=== PATIENT | female | born 1970 | race Caucasian/White ===

== ENCOUNTER 2020-06-18 23:12 | Inpatient (IN) | payer MEDICAID, SELFPAY ==
[~2020-06-18] VITALS: Ht 160 cm; Wt 78.9 kg
[2020-06-18 23:18] VITALS: BP 147/79
--- NOTE | 2020-06-18 23:20 | NUR ---
50 Y/O FEMALE PRESENTED TO ED C/O LOWER ABDOMINAL RASH/ABCESS S/P CHANGING CAT LITTER. PT REPORTS INCREASE IN SIZE FROM QUARTER-SIZED TO ORANGE-SIZED X 2 DAY AGO. REPORTED DRAINAGE. OBSERVED REDNESS ON LOWER ABD , NO DRAINAGE NOTED AT THIS TIME. PT C/O MILD PAIN UPON PALPATION. PT DENIES N/V/D/FEVER/CHILLS. A/O X 4 . RR EVEN AND UNLABORED. PT RESTING IN BED, LOCKED AND IN LOWEST POSITION, HOB ELEVATED, SIDE RAIL X2 FOR PT SAFETY. VSS. ERMD MADE AWARE OF PT STATUS. PMHX--ANIXETY, DM, CELLULITIS NKDA
--- NOTE | 2020-06-18 23:22 | NUR ---
ERMD AT BEDSIDE FOR MEDICAL EVALUATION.
--- NOTE | 2020-06-18 23:30 | NUR ---
PT PLACED IN GOWN AND CONNECTED TO LINING BASTER, BED LOCKED AND IN LOWEST POSITION, HOB ELEVATED , SIDE RAIL X1. NO ACUTE DISTRESS NOTED AT THIS TIME.
--- NOTE | 2020-06-18 23:35 | NUR ---
BLOOD CULUTRES AND BLOOD LABS COLLECTED AND HANDED TO LAB.
[2020-06-18] MEDS ORDERED: NACL 0.9% 2,500 ML IV ONE (23:40)
[2020-06-19 00:04] LABS: BASOPHILS # (AUTO) 0.1 K/uL (0.00-0.22); BASOPHILS % (AUTO) 0.9 % (0.0-2.0); EOSINOPHILS # (AUTO) 0.1 K/uL (0-0.4); EOSINOPHILS % (AUTO) 1.4 % (0.0-4.0); HEMATOCRIT 44.3 % (36-48); HEMOGLOBIN 15.1 g/dL (12.0-16.0); LYMPHOCYTES # (AUTO) 1.8 K/uL (2.5-16.5); LYMPHOCYTES % (AUTO) 25.8 % (20.5-51.1); MEAN CORPUSCULAR HEMOGLOBIN 31 pg (27-31); MEAN CORPUSCULAR HGB CONC 34 g/dL (33-37); MEAN CORPUSCULAR VOLUME 91.3 fL (80-94); MONOCYTES # (AUTO) 0.3 K/uL (0.8-1.0); MONOCYTES % (AUTO) 4.5 % (1.7-9.3); NEUTROPHILS # (AUTO) 4.6 K/uL (1.8-7.7); NEUTROPHILS % (AUTO) 67.4 % (42.2-75.2); PLATELET COUNT (AUTO) 184 K/uL (140-450); RED BLOOD CELL COUNT(AUTO) 4.85 MIL/uL (4.20-5.40); RED CELL DISTRIBUTION WIDTH 12.7 % (11.6-13.7); WHITE BLOOD COUNT (AUTO) 6.9 K/uL (4.8-10.8)
[2020-06-19 00:21] LABS: ALBUMIN 4.5 g/dL (3.4-5.0); ANION GAP 14.8 (8-16); CARBON DIOXIDE 26.7 mmol/L (21-32); CREATININE 0.9 mg/dL (0.6-1.3); POTASSIUM 3.5 mmol/L (3.5-5.1); TOTAL BILIRUBIN 0.5 mg/dL (0.0-1.0)
--- NOTE | 2020-06-19 00:30 | NUR ---
PT RESTING IN BED, LOCKED AND IN LOWEST POSITION ,HOB ELEVATED, SIDE RAIL X1. VISIBLE RISE AND FALL OF CHEST, RR EVEN AND UNLABORED. VSS. NO ACUTE DISTRESS NOTED AT THIS TIME.
[2020-06-19] MEDS ORDERED: LIDOCAINE/PRILOCAINE 2.5% 5 GM TUBE TP ONE (00:40)
[2020-06-19] MEDS ORDERED: INSULIN REGULAR, HUMAN 100 UNIT/ML VIAL IVP ONE (00:40)
[2020-06-19] MEDS ORDERED: KETOROLAC 30 MG/ML VIAL IVP ONE (00:40)
[2020-06-19] MEDS ORDERED: VANCOMYCIN 1,000 MG in DEXTROSE 5% 250 ML IV ONE (00:40)
[2020-06-19] MEDS ORDERED: PIPERACILLIN/TAZOBACTAM 3.375 GM in DEXTROSE 5% 50 ML IV ONE (00:40)
--- NOTE | 2020-06-19 00:45 | NUR ---
PT AMBULATED TO RESTROOM W/ STEADY GAIT TO PROVIDE URINE SAMPLE.
[2020-06-19] MEDS ORDERED: PIPERACILLIN/TAZOBACTAM 3.375 GM VIAL IV ONE ×2 (00:46→12:03)
--- NOTE | 2020-06-19 01:07 | NUR ---
LAB CALLED FOR P/U OF URINE SAMPLE AT THIS TIME.
[2020-06-19 01:29] LABS: APPEARANCE,URINE CLEAR (CLEAR); BILIRUBIN,URINE NEGATIVE (NEGATIVE); BLOOD, URINE NEGATIVE (NEGATIVE); COLOR,URINE YELLOW (YELLOW); LEUKOCYTE ESTERASE ,URINE NEGATIVE (NEGATIVE); NITRITE, URINE NEGATIVE (NEGATIVE); PH,URINE 5.5 (5.0-9.0); UGLUCOSE 3+ (NEGATIVE)
[2020-06-19] MEDS ORDERED: VANCOMYCIN 1,000 MG VIAL ONE (01:31)
--- NOTE | 2020-06-19 01:45 | NUR ---
PT STATES SHE IS FEELING GOOD, NO PAIN NOTED AT THIS TIME. PT RESTING IN BED, LOCKED AND IN LOWEST POSITION, HOB ELEVATED, SIDE RAIL X1. RR EVEN AND UNLABORED. NO ACUTE DISTRESS NOTED AT THIS TIME. VSS.
--- NOTE | 2020-06-19 02:08 | NUR ---
lactic acid of 2.[address] Tilley.
--- NOTE | 2020-06-19 02:15 | NUR ---
MIR BURGOS AT BEDSIDE RE-EVALUATIONS
--- NOTE | 2020-06-19 02:50 | NUR ---
BRIDGETT ISABEL SWAB COLLECTED AND WALKED TO LAB.
--- NOTE | 2020-06-19 03:25 | NUR ---
PT RESTING IN BED, LOCKED AND IN LOWEST POSITION ,HOB ELEVATED, SIDE RAIL X2 FOR PT SAFETY. VISIBLE RISE AND FALL OF CHEST. PT STATES SHE IS FEELING GOOD AT THIS TIME AND DOES NOT NEED ANYTHING. VSS. NO ACUTE DISTRESS NOTED AT THIS TIME.
--- NOTE | 2020-06-19 03:50 | NUR ---
PT PROVIDED WATER FOR COMFORT. NO DISTRESS NOTED AT THIS TIME.
--- NOTE | 2020-06-19 05:21 | NUR ---
PT AMBULATED TO RESTROOM W/ STEADY GAIT.
--- NOTE | 2020-06-19 05:24 | NUR ---
PT C/O 01/11 HEAD PAIN AT THIS TIME. ADMITTING DR. YORK CONTACTED , WAITING FOR ORDERS AT THIS TIME.
[2020-06-19] MEDS ORDERED: MORPHINE SULFATE 4 MG/ML SYR IVP ONE (05:45)
--- NOTE | 2020-06-19 05:45 | NUR ---
UNABLE TO GET A HOLD OF ADMIT DR. YORK AT THIS TIME. ERMD MADE AWARE OF PT PAIN C/O - ERMD WILL PLACE PAIN MEDICATION ORDER AT THIS TIME.
--- NOTE | 2020-06-19 05:56 | NUR ---
PER PT AUTHORIZATION , OK TO GIVE INFORMATION REGARDING PT STATUS TO SISTER PALOMA KHOURY.
--- NOTE | 2020-06-19 06:35 | NUR ---
PT SLEEPING IN BED, LOCKED AND IN LOWEST POSITION, HOB ELEVATED, SIDE RAIL X2 FOR PT SAFETY. VISIBLE RISE AND FALL OF CHEST , AROUSABLE TO VERBAL STIMULATION. SAO2 97%. VSS. NO ACUTE DISTRESS NOTED AT THIS TIME.
[2020-06-19] MEDS ORDERED: DOCUSATE SODIUM 100 MG GELCAP PO PRN (07:00)
[2020-06-19] MEDS ORDERED: guaiFENesin DM 200/20 MG-10 ML 10 ML UDC PO PRN (07:00)
[2020-06-19] MEDS ORDERED: POTASSIUM CHLORIDE 10 MEQ TABER PO PRN (07:00)
[2020-06-19] MEDS ORDERED: ACETAMINOPHEN 325 MG TAB PO PRN (07:00)
[2020-06-19] MEDS ORDERED: ONDANSETRON 4 MG/2 ML VIAL IM/IVP PRN (07:00)
--- NOTE | 2020-06-19 07:15 | NUR ---
REPORT GIVEN TO NOAH CUNNINGHAM FOR TRANSFER OF CARE.
--- NOTE | 2020-06-19 07:16 | NUR ---
REPORT RECEIVED FROM NOAH CUELLAR.
[2020-06-19] MEDS: NACL 0.9% 1,000 ML IV SCH ×2 (07:56→17:00)
--- NOTE | 2020-06-19 07:57 | NUR ---
PT FBS 305. DR. YORK MADE AWARE.
[2020-06-19] MEDS ORDERED: DEXTROSE 50% 50 ML SYR IVP PRN (08:05)
--- NOTE | 2020-06-19 08:07 | NUR ---
pt sitting up and eating breakfast in bed.
[2020-06-19] MEDS: INSULIN LISPRO SLIDING SCALE 100 UNITS/ML VIAL SUBQ PRN ×3 (08:15→17:04)
[2020-06-19] MEDS: metFORMIN 500 MG TAB PO SCH ×2 (08:16→17:06)
--- NOTE | 2020-06-19 08:33 | NUR ---
Dr. Tilley is evaluating the patient at bedside.
[2020-06-19 08:36] LABS: PROTHROMBIN TIME 9.8 secs (10.8-13.4)
--- NOTE | 2020-06-19 08:37 | NUR ---
PATIENT HAS BEEN SCREENED AND CATEGORIZED MODERATE NUTRITION RISK. PATIENT WILL BE SEEN WITHIN 3-5 DAYS OF ADMISSION. 06/21/20 06/23/[address]
[2020-06-19 08:50] LABS: CHOL/HDL RATIO 3.3 (1-4.5); FREE T4 (FREE THYROXINE) 1.09 ng/dL (0.76-1.46); MAGNESIUM 1.8 mg/dL (1.8-2.4); PHOSPHORUS 4.2 mg/dL (2.5-4.9); THYROID STIMULATING HORMONE 1.8 uIU/mL (0.34-3.74)
[2020-06-19] MEDS: PANTOPRAZOLE 40 MG TABEC PO SCH (09:23)
[2020-06-19 09:27] LABS: BARBITURATE, URINE NEGATIVE ng/ml (NEG <=200); BENZODIAZEPINE, URINE NEGATIVE ng/mL (NEG <=200); CANNABINOID, URINE NEGATIVE ng/mL (NEG <=50); COCAINE, URINE NEGATIVE ng/mL (NEG <=300); OPIATE, URINE NEGATIVE ng/mL (NEG <=2000); PHENCYCLIDINE SCREEN,URINE NEGATIVE ng/mL (NEG <=25)
[2020-06-19] MEDS: BLOOD GLUCOSE MONITORING 1 DEV DEV FS SCH ×3 (11:32→21:12)
[2020-06-19] MEDS: PIPERACILLIN/TAZOBACTAM 3.375 GM in DEXTROSE 5% 50 ML IV SCH ×2 (12:13→18:27)
--- NOTE | 2020-06-19 12:46 | NUR ---
SOCIAL WORK NOTE: SW ATTEMPTED TO CONTACT PATIENT'S CRISTIANO MAHARAJ [phone] TO COMPLETE ASSESSMENT. SW LEFT VM AND WILL FOLLOW UP. Addendum: 06/20/20 at 1316 by Harrison Noriega SS Patient's Orientation Unable To Assess Information Provided By CRISTIANO MAHARAJ - Comments SW WAS UNABLE TO MEET PATIENT AT BEDSIDE DUE TO MEDICAL CONDITION. SW COMPLETED ASSESSMENT WITH PATIENT'S CRISTIANO AND VERIFIED DEMOGRAPHICS. Storage Battery Charger, Realtionship and Phone Number CRISTIANO BLOOD [phone] Healthcare Power of Cloth Finishing Range Tender No Does Patient Have a POLST No Identifying Problems No Social Work Triggers Is A Social Work Consult Needed No Mandate Report Filed No Explanation Of Identifying Problems PATIENT IS A 50-YEAR-OLD FEMALE ADMITTED FOR UNCONTROLLED DIABETES. PATIENT HAS PMHX OF DIABETES AND CELLULITIS. PATIENT'S REPORTED NO HISTORY OF SUBSTANCE ABUSE OR MENTAL HEALTH. Admitted From Home Prior Resources/Services Used In Last 12 Months No Prior Resources Used Prior DME No Prior DME Used Dialysis Comments N/A Living Situation Lives With Family House Patient Had Caregiver No Home Support No Caregiver Issues Financial Issues No Known Financial Issue Referral To The Financial Counselor Needed No Factors/Needs No D/C Needs Identified Explanation And Or Other Factors Affecting/Possible DC Needs PATIENT'S STATED HE WOULD TRANSPORT PATIENT HOME AT DISCHARGE. Pt/Rep Participated In Discharge Plan Yes Patient/Family Agress With Discharge Plan Yes Discharge Plan Comments TENTATIVE PLAN IS FOR PATIENT TO BE DISCHARGED HOME. DC Plan Status Initiated
[2020-06-19] MEDS ORDERED: metFORMIN 500 MG TAB PO SCH (17:00)
--- NOTE | 2020-06-19 19:28 | NUR ---
Pt report given to MANDEEP. Transfer of care at this time.
--- NOTE | 2020-06-19 19:30 | NUR ---
RECEIVED REPORT FROM OCTAVIO AZMORA FOR CONTINUITY OF CARE. PT LAYING IN BED, IN NO ACUTE DISTRESS NOTED. PT PLACED ON WAITER/WAITRESS ECONOMY CLASS AT THIS TIME. MS HOLD AT THIS TIME.
[2020-06-19 20:15] VITALS: BP 137/76
--- NOTE | 2020-06-19 20:15 | NUR ---
PICTURES OF WOUND TAKEN. PRIMARY NURSE AT BEDSIDE.
--- NOTE | 2020-06-19 20:20 | NUR ---
Gave report to Nancy ZAMORA for continuity of care.
--- NOTE | 2020-06-19 20:39 | NUR ---
Patient will be admitted to care of Admited to [facility]. Will go to room 126. Belongings list completed. Report to ANASTASIA ZAMORA.
--- NOTE | 2020-06-19 20:45 | NUR ---
RECEIVED PATIENT FROM ER VIA WHEELCHAIR IN STABLE CONDITION FOR CONTINUITY OF CARE. AAOX4. RESPIRATIONS EVEN, UNLABORED. PATIENT VERBALIZED PAIN, WILL MEDICATE ORDERED. NO S/S ACUTE DISTRESS. SKIN ASSESSMENT COMPLETE. CLOSED WOUND TO LOWER MEDIAL ABDOMEN NOTED, OPEN TO AIR. SALINE LOCK TO LEFT AC 20G PATENT/INTACT. IV SITE TO RIGHT AC 20G PATENT/INTACT, INFUSING FLUIDS WELL. ABDOMEN SOFT, NONTENDER, NONDISTENDED. BOWEL SOUNDS ACTIVE X4 QUADRANTS. PATIENT IS CONTINENT OF B/B. ORIENTED TO ROOM/STAFF AND CALL LIGHT. MRSA SCREEN COMPLETED. CALL LIGHT WITHIN REACH AT ALL TIMES.
--- NOTE | 2020-06-19 21:45 | NUR ---
PATIENT RESTING COMFORTABLY IN BED. NO S/S ACUTE DISTRESS. CALL LIGHT WITHIN REACH.
[2020-06-19] MEDS: HYDROcodone/APAP 7.5/325 MG 1 TAB PO PRN (22:07)
--- NOTE | 2020-06-19 23:30 | NUR ---
PATIENT ASLEEP. NO S/S ACUTE DISTRESS. CALL LIGHT WITHIN REACH.
[2020-06-20] VITALS: BP 126/78
[2020-06-20] MEDS ORDERED: PIPERACILLIN/TAZOBACTAM 3.375 GM VIAL IV ONE ×2 (00:03→05:17)
[2020-06-20] MEDS: PIPERACILLIN/TAZOBACTAM 3.375 GM in DEXTROSE 5% 50 ML IV SCH ×4 (00:05→18:30)
--- NOTE | 2020-06-20 01:10 | NUR ---
MADE ROUNDS. PATIENT IS SLEEPING WELL. NO S/S ACUTE DISTRESS. CALL LIGHT WITHIN REACH.
[2020-06-20] MEDS: NACL 0.9% 1,000 ML IV SCH ×2 (03:00→12:33)
--- NOTE | 2020-06-20 03:22 | NUR ---
PATIENT IS ASLEEP. NO S/S ACUTE DISTRESS. CALL LIGHT WITHIN REACH.
--- NOTE | 2020-06-20 05:15 | NUR ---
PATIENT ASLEEP, EASILY AROUSABLE. NO S/S ACUTE DISTRESS. CALL LIGHT WITHIN REACH.
[2020-06-20 06:12] LABS: ANION GAP 11.9 (8-16); CARBON DIOXIDE 26.8 mmol/L (21-32); CREATININE 0.5 mg/dL (0.6-1.3); POTASSIUM 3.7 mmol/L (3.5-5.1)
[2020-06-20 06:33] LABS: BASOPHILS % (AUTO) 0.5 % (0.0-2.0); EOSINOPHILS # (AUTO) 0.1 K/uL (0-0.4); EOSINOPHILS % (AUTO) 1.9 % (0.0-4.0); HEMATOCRIT 38.6 % (36-48); HEMOGLOBIN 12.8 g/dL (12.0-16.0); LYMPHOCYTES # (AUTO) 1.5 K/uL (2.5-16.5); LYMPHOCYTES % (AUTO) 25.4 % (20.5-51.1); MEAN CORPUSCULAR HEMOGLOBIN 30 pg (27-31); MEAN CORPUSCULAR HGB CONC 33 g/dL (33-37); MEAN CORPUSCULAR VOLUME 91.2 fL (80-94); MONOCYTES # (AUTO) 0.3 K/uL (0.8-1.0); MONOCYTES % (AUTO) 5.6 % (1.7-9.3); NEUTROPHILS # (AUTO) 3.9 K/uL (1.8-7.7); NEUTROPHILS % (AUTO) 66.6 % (42.2-75.2); PLATELET COUNT (AUTO) 141 K/uL (140-450); RED BLOOD CELL COUNT(AUTO) 4.24 MIL/uL (4.20-5.40); RED CELL DISTRIBUTION WIDTH 12.4 % (11.6-13.7); WHITE BLOOD COUNT (AUTO) 5.8 K/uL (4.8-10.8)
[2020-06-20] MEDS: INSULIN LISPRO SLIDING SCALE 100 UNITS/ML VIAL SUBQ PRN ×4 (06:44→20:51)
[2020-06-20] MEDS: BLOOD GLUCOSE MONITORING 1 DEV DEV FS SCH ×4 (06:48→20:52)
--- NOTE | 2020-06-20 07:30 | NUR ---
RECEIVED PT AAOX4. NO SOB NOTED. NO C/O PAIN AT THIS TIME. IV TO RT AND LT HAND PATENT AND INTACT. CHEST CLEAR. ABDOMEN SOFT, BOWEL SOUNDS PRESENT. NO EDEMA NOTED. WITH CLOSED WOUND (CELLULITIS) ON SUPRAPUBIC AREA NOTED CLEAN AND DRY. INSTRUCTED PT TO CALL FOR ASSISTANCE, CALL LIGHT WITHIN REACH. PT VERBALIZED UNDERSTANDING.
[2020-06-20 08:00] VITALS: BP 114/67
[2020-06-20 08:10] LABS: T4 (THYROXINE) 8.1 ug/dL (4.5-12.0)
--- NOTE | 2020-06-20 08:12 | NUR ---
FNS CONSULT RECEIVED FOR WOUNDS/PRESSURE ULCERS IS NOT APPROPRIATE FOR NOTED "ABDOMINAL WALL CELLULITIS".
[2020-06-20] MEDS: metFORMIN 500 MG TAB PO SCH ×2 (08:50→18:31)
[2020-06-20] MEDS: PANTOPRAZOLE 40 MG TABEC PO SCH (08:50)
[2020-06-20] MEDS: HYDROcodone/APAP 7.5/325 MG 1 TAB PO PRN ×3 (08:51→22:51)
[2020-06-20 16:00] VITALS: BP 143/68
--- NOTE | 2020-06-20 19:20 | NUR ---
PT RESTING. NO SOB NOTED. NO C/O PAIN. WILL ENDORSE TO NEXT SHIFT NURSE FOR CONTINUITY OF CARE.
--- NOTE | 2020-06-20 19:53 | NUR ---
AWAKE ALERT AND ORIENTED.RESP.UNLABORED.LUNGS CLEAR.NO C/O PAIN OR DISCOMFORT NOW.CALL LIGHT WITHIN REACH.WILL CONT.MONITORING.
[2020-06-20 20:00] VITALS: BP 122/77
[2020-06-20] MEDS: ZOLPIDEM 5 MG TAB PO PRN (20:51)
[2020-06-21] MEDS: PIPERACILLIN/TAZOBACTAM 3.375 GM in DEXTROSE 5% 50 ML IV SCH ×4 (00:03→17:35)
[2020-06-21 04:00] VITALS: BP 117/69
[2020-06-21] MEDS: HYDROcodone/APAP 7.5/325 MG 1 TAB PO PRN ×2 (05:07→13:38)
[2020-06-21] MEDS: NACL 0.9% 1,000 ML IV SCH ×3 (05:08→19:00)
[2020-06-21] MEDS: BLOOD GLUCOSE MONITORING 1 DEV DEV FS SCH ×4 (06:00→21:00)
[2020-06-21 06:02] LABS: BASOPHILS % (AUTO) 0.9 % (0.0-2.0); EOSINOPHILS # (AUTO) 0.1 K/uL (0-0.4); EOSINOPHILS % (AUTO) 1.9 % (0.0-4.0); HEMATOCRIT 36.3 % (36-48); HEMOGLOBIN 12.5 g/dL (12.0-16.0); LYMPHOCYTES # (AUTO) 1.7 K/uL (2.5-16.5); LYMPHOCYTES % (AUTO) 35.2 % (20.5-51.1); MEAN CORPUSCULAR HEMOGLOBIN 31 pg (27-31); MEAN CORPUSCULAR HGB CONC 34 g/dL (33-37); MEAN CORPUSCULAR VOLUME 90.4 fL (80-94); MONOCYTES # (AUTO) 0.2 K/uL (0.8-1.0); MONOCYTES % (AUTO) 4.6 % (1.7-9.3); NEUTROPHILS # (AUTO) 2.8 K/uL (1.8-7.7); NEUTROPHILS % (AUTO) 57.4 % (42.2-75.2); PLATELET COUNT (AUTO) 137 K/uL (140-450); RED BLOOD CELL COUNT(AUTO) 4.01 MIL/uL (4.20-5.40); RED CELL DISTRIBUTION WIDTH 12.4 % (11.6-13.7); WHITE BLOOD COUNT (AUTO) 4.8 K/uL (4.8-10.8)
[2020-06-21] MEDS: INSULIN LISPRO SLIDING SCALE 100 UNITS/ML VIAL SUBQ PRN ×3 (06:12→17:34)
[2020-06-21 06:46] LABS: ANION GAP 9.8 (8-16); CARBON DIOXIDE 30.7 mmol/L (21-32); CREATININE 0.5 mg/dL (0.6-1.3); POTASSIUM 3.5 mmol/L (3.5-5.1)
--- NOTE | 2020-06-21 07:32 | NUR ---
REPORT GIVEN TO MIKALA ZAMORA.PT IS WORRY ABOUT HER CELLULITIS ON LOWER ABDOMEN.ENDORSED TO MIKALA ZAMORA AM SHIFT TO TALK ABOUT THAT TO .PT'S CONDITION IS STABLE.
--- NOTE | 2020-06-21 07:33 | NUR ---
RECEIVED REPORT FROM SIGN BOARD ERECTOR NURSE JULIA-NOAH. PT RESTING IN BED, AOX4, ON ROOM AIR WITH LEFT AC #20G AND RIGHT FA#20G RUNNING NS @ 100ML/HR. LOWER ABDOMINAL WALL CELLULITIS AND SUPRAPUBIC ABSCESS. DISCUSSED PLAN OF CARE AND PT VERBALIZED UNDERSTANDING. NO S/S OF RESPIRATORY DISTRESS AND DISCOMFORT NOTED AT THIS TIME. WILL CONTINUE TO MONITOR.
[2020-06-21] MEDS: metFORMIN 500 MG TAB PO SCH ×2 (09:04→17:35)
[2020-06-21] MEDS: PANTOPRAZOLE 40 MG TABEC PO SCH (09:05)
--- NOTE | 2020-06-21 09:05 | NUR ---
SCHEDULED MEDICATIONS GIVEN AND TOLERATED WELL. PT STATED SHE VOMITED IN THE TOILET. ZOFRAN ALSO GIVEN AND TOLERATED WELL. NO S/S OF RESPIRATORY DISTRESS AND DISCOMFORT NOTED AT THIS TIME. WILL CONTINUE TO MONITOR.
--- NOTE | 2020-06-21 10:30 | NUR ---
WOUND CONSULT DONE WITH CONCHITA QUIJANO FROM DR. SAMS. POC DISCUSSED WITH PT. WILL HAVE I&D TOMORROW AND HOME [facility]ALTH [facility]ARE TO FOLLOW UP FOR WOUND CARE . WILL EVALUATED WOUND AFTER SURGERY, POSSIBLE ON FRIDAY. PT. VERBALIZES UNDERSTANDING. START TX WITH PRN WOUND CARE: SUPRAPUBIC WOUND CLEANSE WITH NS, PAT DRY ,APPLY COMPOSITE DRESSING.
--- NOTE | 2020-06-21 11:30 | NUR ---
BLOOD GLUCOSE 283- WILL ADMINISTER INSULIN COVERAGE.
--- NOTE | 2020-06-21 12:17 | NUR ---
INSULIN COVERAGE GIVEN AND TOLERATED WELL. ZOSYN GIVEN AND TOLERATED WELL. NO S/S OF RESPIRATORY DISTRESS AND DISCOMFORT NOTED AT THIS TIME. WILL CONTINUE TO MONITOR.
--- NOTE | 2020-06-21 14:00 | NUR ---
PT RESTING IN BED. NO S/S OF RESPIRATORY DISTRESS AND DISCOMFORT NOTED AT THIS TIME. WILL CONTINUE TO MONITOR.
--- NOTE | 2020-06-21 14:31 | NUR ---
DC PLANN[age] YRS OLD FEMALE PATIENT WAS ADMITTED FROM HOME WITH A DX OF UNCONTROLLED DM, LOWER ABDOMINAL WALL CELLULITIS. PT HAS A HX OF DM WITH NEUROPATHY AND CELLULITIS OF THE 2ND AND 3RD FINGER OF RT HAND (2017). CXR NEGATIVE. RAPID COVID TEST NEGATIVE . URINE AND BLOOD CULTURE PENDING. STARTED ON IVF, IV ABX WITH ROCEPHIN. US DONE TO CHECK SUPRAPUBIC MASS SHOWED A SOLID MASS. CONSULTED WITH SURGEON DR SAMS FOR SUPRAPUBIC ABSCESS . I&D IS SCHEDULED FOR TOMORROW. DC PLAN TO HO HOME WITH HOME HEALTH FOR WOUND CARE. CM TO FOLLOW
--- NOTE | 2020-06-21 16:00 | NUR ---
PT RESTING IN BED. NO S/S OF RESPIRATORY DISTRESS AND DISCOMFORT NOTED AT THIS TIME. WILL CONTINUE TO MONITOR.
--- NOTE | 2020-06-21 17:35 | NUR ---
INSULIN COVERAGE GIVEN AND TOLERATED WELL. SCHEDULED MEDICATION GLUCOPHAGE AND ZOSYN GIVEN AND TOLERATED WELL. NO S/S OF RESPIRATORY DISTRESS OR DISCOMFORT NOTED AT THIS TIME. WILL CONTINUE TO MONITOR.
[2020-06-22] MEDS: NACL 0.9% 1,000 ML IV SCH ×2 (05:00→16:24)
[2020-06-22] MEDS: PIPERACILLIN/TAZOBACTAM 3.375 GM in DEXTROSE 5% 50 ML IV SCH ×6 (06:00→23:36)
[2020-06-22] MEDS: BLOOD GLUCOSE MONITORING 1 DEV DEV FS SCH ×4 (07:30→21:11)
--- NOTE | 2020-06-22 07:30 | NUR ---
RECEIVED PATIENT FROM NIGHT NURSE. PATIENT IN BED AWAKE AND ALERT. RESP EVEN AND UNLABORED ON ROOM AIR. DENIED OF PAIN AT THIS TIME. SLEPT THROUGH THE NIGHT. LAC 20G RFA 20G NOTED. PATIENT PENDING PROCEDURE WITH DR SAMS FOR I/D SUPRAPUBIC ABSCESS AT 1300. PLAN OF CARE DISCUSSED WITH PATIENT. PATIENT VERBALIZED UNDERSTANDING. CALL LIGHT WITHIN REACH. WILL CONTINUE TO MONITOR.
[2020-06-22 08:00] VITALS: BP 121/72
[2020-06-22] MEDS: metFORMIN 500 MG TAB PO SCH ×2 (09:21→16:24)
[2020-06-22] MEDS: PANTOPRAZOLE 40 MG TABEC PO SCH (09:22)
--- NOTE | 2020-06-22 09:23 | NUR ---
MORNING ROUTINE MEDICATIONS GIVEN. PATIENT IN BED AWAKE AND ALERT ORIENTED X4. RESP EVEN AND UNLABORED ON ROOM AIR. DENIED OF PAIN AT THIS TIME. SKIN WARM TO TOUCH AND INTACT. PATIENT ABLE TO AMBULATE TO THE BATHROOM SAFELY WITHOUT ANY ASSIST. RFA 20G INFUSING D5 NS 60ML/HR, LAC 20G INTACT AND PATENT, SL. BANDAGE COVERED SMALL AREA OVER SUPRAPUBIC AREA, WITH SMALL PINK DRAINAGE NOTED, NO ACTIVE BLEEDING AT THIS TIME, MASS FELT UPON PALPATION, NON TENDER AND PT DENIED PAIN. PATIENT ABLE TO MAKE NEEDS KNOWN. CALL LIGHT WITHIN REACH. WILL CONTINUE TO MONITOR.
[2020-06-22 10:36] LABS: ANION GAP 12.9 (8-16); CREATININE 0.5 mg/dL (0.6-1.3); POTASSIUM 3.9 mmol/L (3.5-5.1)
[2020-06-22 10:40] LABS: MAGNESIUM 1.6 mg/dL (1.8-2.4); PHOSPHORUS 4.4 mg/dL (2.5-4.9)
[2020-06-22 11:19] LABS: WHITE BLOOD COUNT (AUTO) 4.6 K/uL (4.8-10.8)
[2020-06-22 11:20] LABS: BASOPHILS % (AUTO) 0.4 % (0.0-2.0); EOSINOPHILS # (AUTO) 0.1 K/uL (0-0.4); EOSINOPHILS % (AUTO) 1.4 % (0.0-4.0); HEMOGLOBIN 13.1 g/dL (12.0-16.0); LYMPHOCYTES # (AUTO) 1.2 K/uL (2.5-16.5); LYMPHOCYTES % (AUTO) 26.3 % (20.5-51.1); MEAN CORPUSCULAR HEMOGLOBIN 31 pg (27-31); MEAN CORPUSCULAR HGB CONC 34 g/dL (33-37); MONOCYTES # (AUTO) 0.3 K/uL (0.8-1.0); MONOCYTES % (AUTO) 5.9 % (1.7-9.3); PLATELET COUNT (AUTO) 151 K/uL (140-450); RED BLOOD CELL COUNT(AUTO) 4.26 MIL/uL (4.20-5.40); RED CELL DISTRIBUTION WIDTH 12.3 % (11.6-13.7)
[2020-06-22] MEDS ORDERED: MAG SULF 2000 MG/WATER PREMIX 50 ML IV SCH (11:50)
[2020-06-22] MEDS: INSULIN LISPRO SLIDING SCALE 100 UNITS/ML VIAL SUBQ PRN ×3 (12:28→21:10)
--- NOTE | 2020-06-22 12:35 | NUR ---
BLOOD GLUCOSE 230. INSULIN PROVIDED PER SLIDING SCALE. PATIENT IN BED TALKING ON HER CELL PHONE. DENIED OF PAIN AT THIS TIME. RESP EVEN AND UNLABORED ON ROOM AIR. ABLE TO AMBULATING WITH STEADY GAIT TO THE BATHROOM. CALL LIGHT WITHIN REACH. WILL CONTINUE WITH NPO. WILL CONTINUE TO MONITOR.
[2020-06-22] MEDS ORDERED: KETOROLAC 30 MG/ML VIAL ONE (14:05)
[2020-06-22] MEDS ORDERED: MEPERIDINE 25 MG/ML SYR IVP PRN (14:05)
[2020-06-22] MEDS ORDERED: HYDROmorphone 1 MG/ML AMP IVP PRN (14:05)
[2020-06-22] MEDS ORDERED: BLOOD GLUCOSE MONITORING 1 DEV DEV FS ONE (14:05)
[2020-06-22] MEDS ORDERED: fentaNYL citrate 0.05 MG/ML VIAL ONE (14:05)
[2020-06-22] MEDS ORDERED: SEVOFLURANE 250 ML BTL INH ONE (14:05)
[2020-06-22] MEDS ORDERED: MEPERIDINE 25 MG/ML SYR ONE (14:05)
[2020-06-22] MEDS ORDERED: DEXAMETHASONE 4 MG/ML VIAL ONE (14:05)
[2020-06-22] MEDS ORDERED: MIDAZOLAM 2 MG/2 ML VIAL ONE (14:05)
[2020-06-22] MEDS ORDERED: ONDANSETRON 4 MG/2 ML VIAL IVP PRN (14:05)
[2020-06-22] MEDS ORDERED: PROPOFOL 200 MG/20 ML VIAL IV ONE (14:05)
[2020-06-22] MEDS ORDERED: NACL 0.9% 1,000 ML IV SCH (14:05)
[2020-06-22] MEDS ORDERED: ONDANSETRON 4 MG/2 ML VIAL ONE (14:05)
[2020-06-22] MEDS ORDERED: diphenhydrAMINE 50 MG/ML VIAL IVP PRN (14:05)
--- NOTE | 2020-06-22 14:07 | NUR ---
PT TO OR FOR PROCEDURE. PATIENT LEFT IN STABLE CONDITION.
[2020-06-22] MEDS: BUPIVACAINE-MPF 0.25% 30 ML VIAL INJ ONE ×2 (14:43→14:54)
[2020-06-22] MEDS: LIDOCAINE 1% 500 MG/50 ML VIAL ONE ×2 (14:54→15:36)
--- NOTE | 2020-06-22 15:02 | NUR ---
06/22/20 RD INITIAL ASSESSMENT COMPLETED PLEASE REFER TO NUTRITION ASSESSMENT UNDER CARE ACTIVITY FOR ESTIMATED NUTRITIONAL NEEDS. 1. CONTINUE [facility] DIET TOLERATED 2. RD PROVIDED NUTRITION EDUCATION ON CONSISTENT CARBOHYDRATE INTAKE 3. RD TO FOLLOW-UP 3-5 DAYS, MODERATE RISK KAROLINE YUNG, RD
--- NOTE | 2020-06-22 15:35 | NUR ---
PATIENT CAME BACK FROM OR S/P INCISION AND DRAINAGE OF SUPRAPUBIC ABSCESS. PATIENT CAME BACK IN STABLE CONDITION. SLIGHT DROWSY BUT ALERT. DENIED OF PAIN AT THIS TIME. RESP EVEN AND UNLABORED ON ROOM AIR. ABLE TO MAKE NEEDS KNOWN. CCHO DIET TOLERATED. CALL LIGHT WITHIN REACH. WILL CONTINUE TO MONITOR.
[2020-06-22] MEDS: HYDROcodone/APAP 7.5/325 MG 1 TAB PO PRN ×2 (16:25→21:05)
--- NOTE | 2020-06-22 17:54 | NUR ---
BLOOD GLUCOSE 217. INSULIN GIVEN PER SLIDING SCALE. PATIENT AWAKE AND ALERT. IV ACCESS INSERTED TO LEFT UPPER FOREARM 22G USING ASEPTIC TECHNIQUE. REMOVED PRIOR IV ACCESS D/T INFILTRATION. PATIENT TOLERATED WELL. DENIED OF PAIN AT THIS TIME. CALL LIGHT WITHIN REACH. WILL CONTINUE TO MONITOR.
--- NOTE | 2020-06-22 19:25 | NUR ---
RECEIVED BEDSIDE REPORT FROM DAY SHIFT NURSE. PATIENT IS AWAKE, ALERT, AND COOPERATIVE. RESPIRATION EVEN UNLABORED ON ROOM AIR. NO DISTRESS NOTED. SKIN IS WARM AND DRY. IV PATENT AND INTACT. PATIENT IS S/P I&D SUPRAPUBIC ABSCESS PUSTULE. DRESSING IS INTACT AND DRY. PLAN OF CARE WAS DISCUSSED. ALL SAFETY MEASURES IN PLACE. BED IS AT LOW POSITION. CALL LIGHT WITHIN REACH. WILL CONTINUE TO MONITOR
--- NOTE | 2020-06-22 19:25 | NUR ---
ENDORSED PATIENT TO NIGHT NURSE. PATIENT IN STABLE CONDITION.
[2020-06-22 20:00] VITALS: BP 119/70
--- NOTE | 2020-06-22 21:05 | NUR ---
CHECKED BLOOD SUGAR. PATIENT BLOOD SUGAR 306. ADMINISTERED INSULIN PER SLIDING SCALE ORDER. PATIENT COMPLAINED OF 3/10 ABDOMINAL PAIN. PRN PAIN MED ADMINISTERED PER ORDER. WILL CONTINUE TO MONITOR.
--- NOTE | 2020-06-22 23:35 | NUR ---
PATIENT COMPLAINED CANT FALL ASLEEP AND ASKING FOR SLEEPING AID. PRN AMBIEN GIVEN PER ORDER. WILL CONTINUE TO MONITOR.
[2020-06-22] MEDS: ZOLPIDEM 5 MG TAB PO PRN (23:36)
[2020-06-23] MEDS: NACL 0.9% 1,000 ML IV SCH ×2 (01:00→05:27)
--- NOTE | 2020-06-23 01:21 | NUR ---
CHECKED PATIENT. PATIENT SLEEPING RESPIRATION EVEN UNLABORED ON ROOM AIR. NO DISTRESS NOTED. WILL CONTINUE TO MONITOR.
--- NOTE | 2020-06-23 02:38 | NUR ---
CHECKED PATIENT, PATIENT SLEEPING RESPIRATION EVEN UNLABORED ON ROOM AIR. NO DISTRESS NOTED. WILL CONTINUE TO MONITOR
[2020-06-23 04:00] VITALS: BP 117/60
[2020-06-23] MEDS: PIPERACILLIN/TAZOBACTAM 3.375 GM in DEXTROSE 5% 50 ML IV SCH ×3 (05:25→18:18)
--- NOTE | 2020-06-23 05:30 | NUR ---
IV ANTIBIOTIC ADMINISTERED PER ORDER. WILL CONTINUE TO MONITOR
[2020-06-23 05:43] LABS: BASOPHILS % (AUTO) 0.1 % (0.0-2.0); EOSINOPHILS % (AUTO) 0.1 % (0.0-4.0); HEMATOCRIT 35.4 % (36-48); HEMOGLOBIN 12.1 g/dL (12.0-16.0); LYMPHOCYTES # (AUTO) 1.3 K/uL (2.5-16.5); LYMPHOCYTES % (AUTO) 21.7 % (20.5-51.1); MEAN CORPUSCULAR HEMOGLOBIN 31 pg (27-31); MEAN CORPUSCULAR HGB CONC 34 g/dL (33-37); MEAN CORPUSCULAR VOLUME 90.6 fL (80-94); MONOCYTES # (AUTO) 0.2 K/uL (0.8-1.0); MONOCYTES % (AUTO) 3.7 % (1.7-9.3); NEUTROPHILS # (AUTO) 4.4 K/uL (1.8-7.7); NEUTROPHILS % (AUTO) 74.4 % (42.2-75.2); PLATELET COUNT (AUTO) 160 K/uL (140-450); RED BLOOD CELL COUNT(AUTO) 3.91 MIL/uL (4.20-5.40); RED CELL DISTRIBUTION WIDTH 12.3 % (11.6-13.7); WHITE BLOOD COUNT (AUTO) 5.9 K/uL (4.8-10.8)
[2020-06-23 06:20] LABS: ANION GAP 11.9 (8-16); CARBON DIOXIDE 27.6 mmol/L (21-32); CREATININE 0.5 mg/dL (0.6-1.3); POTASSIUM 3.5 mmol/L (3.5-5.1)
[2020-06-23 06:25] LABS: PHOSPHORUS 4.1 mg/dL (2.5-4.9)
[2020-06-23] MEDS: BLOOD GLUCOSE MONITORING 1 DEV DEV FS SCH ×3 (06:51→16:45)
[2020-06-23] MEDS: INSULIN LISPRO SLIDING SCALE 100 UNITS/ML VIAL SUBQ PRN ×2 (06:52→12:15)
--- NOTE | 2020-06-23 07:24 | NUR ---
ENDORSED TO DAY SHIFT NURSE WITH CONTINUITY OF CARE
--- NOTE | 2020-06-23 07:25 | NUR ---
PATIENT ENDORSED TO RN AM FOR CONTINUITY OF CARE. PT IS STABLE. SAFETY MEASURES IN PLACE. WILL CONTINUE WITH POC.
--- NOTE | 2020-06-23 09:55 | NUR ---
PT IS AAO4, REPORTING PAIN 7/10, LUNG SOUNDS CLEAR, ABD IS SOFT AND NONTENDER. BS ACTIVE X4. WOUND CARE PROVIDED BY WOUND CARE NURSE. COMMUNICATES EFFECTIVELY TOLERATED PO MEDICATION WITH NO PROBLEM. WILL BE MEDICATED FOR PAIN. .
[2020-06-23] MEDS: PANTOPRAZOLE 40 MG TABEC PO SCH (10:09)
[2020-06-23] MEDS: metFORMIN 500 MG TAB PO SCH ×2 (10:09→16:46)
[2020-06-23] MEDS: HYDROcodone/APAP 7.5/325 MG 1 TAB PO PRN (10:12)
--- NOTE | 2020-06-23 10:50 | NUR ---
WOUND CARE RE-EVALUATION NOTE: S/P I&D ABSCESS SUPRAPUBIC SURGICAL WOUND [id number] WOUND BED IS CLEAN,100% GRANULATION TISSUE, SMALL AMOUNT SANGUINOUS DRAINAGE, NO ODOR. WOUND EDGE FLAT AND NO UNDERMINING, NO TUNNELING. WOUND CARE TEACHING AND POC DISCUSSED WITH PT. PT. VERBALIZES UNDERSTANDING RECOMMENDATIONS: -CLEANSE SUPRAPUBIC SURGICAL WOUND WITH NS, PAT DRY,PACK WITH ADAPTIC DRESSING AND APPLY COMPOSITE DRESSING QD AND PRN IF SOILING. -CONTINUE TO FOLLOW RD RECOMMENDATIONS -MAY DISCHARGE WITH WOUND CARED SUPPLIES -CM TO ARRANGE HOME HEALTH WOUND CARE. PLEASE CONTACT WOUND CARE NURSE IF ANY CHANGE OF WOUND CONDITION.
--- NOTE | 2020-06-23 11:45 | NUR ---
PT IN ROOM WATCHING TV IN [employer]. ALL NEEDS MET.
[2020-06-23] MEDS ORDERED: GAUZE TP SCH (13:00)
--- NOTE | 2020-06-23 14:20 | NUR ---
PT RESTING IN BED IN NO DISTRESS. CALL LIGHT WITHIN REACH.
[2020-06-23] MEDS ORDERED: LACT1.4C PO (15:55)
[2020-06-23] MEDS ORDERED: METF500T PO (15:55)
[2020-06-23] MEDS ORDERED: SULF-59 PO (15:55)
[2020-06-23] MEDS ORDERED: INSU100S22 SUBQ (16:23)
[2020-06-23] MEDS ORDERED: HYDR-5122 PO (16:23)
[2020-06-23] MEDS ORDERED: [UNRECOGNIZED DRUG - CODE] MC (16:51)
[2020-06-23 18:29] VITALS: BP 116/55
[2020-06-23] MEDS ORDERED: FLU VACCINE QS2020-21 0.5 ML SYR IMVAC PRN (18:45)
--- NOTE | 2020-06-23 19:40 | NUR ---
PT DISCHARGED AT THIS TIME PT LEFT WITH ALL BELONGINGS AND DISCHARGE INSTRUCTIONS PT VERBALIZED UNDERSTANDING NO QUESTIONS.
--- NOTE | 2020-06-23 20:18 | NUR ---
D/C VIA FAMILY CAR PICKED UP BY SON
== END 2020-06-23 20:05 | disposition home or self-care (01) | DRG 710 ==
LOC: MED 23:12 → MMU 06-19 01:28
PROVIDERS: ADMIT Family Medicine; ATTEND Family Medicine
PROC: 0J9C0ZZ Drainage of Pelvic Region Subcutaneous Tissue and Fascia, Open Approach (ICD-10-PCS; principal; 2020-06-22 13:00)
DX: A41.9 Sepsis, unspecified organism (principal); L02.211 Cutaneous abscess of abdominal wall; N73.2 Unspecified parametritis and pelvic cellulitis; E87.1 Hypo-osmolality and hyponatremia; E11.00 Type 2 diabetes mellitus with hyperosmolarity without nonketotic hyperglycemic-hyperosmolar coma (NKHHC); L02.93 Carbuncle, unspecified; L72.3 Sebaceous cyst; L03.311 Cellulitis of abdominal wall; E11.40 Type 2 diabetes mellitus with diabetic neuropathy, unspecified; E11.69 Type 2 diabetes mellitus with other specified complication; Z90.49 Acquired absence of other specified parts of digestive tract; Z98.891 History of uterine scar from previous surgery; Z96.659 Presence of unspecified artificial knee joint; Z83.3 Family history of diabetes mellitus; Z87.891 Personal history of nicotine dependence; Z20.828 Contact with and (suspected) exposure to other viral communicable diseases
CPT/HCPCS: 36415; 71045; 76881; 80048; 80053; 80305; 81003; 82150; 82948; 83036; 83605; 83690; 83735; 83880; 84100; 84436; 84439; 84443; 84479; 84484; 85025; 85610; 85730; 87040; 87070; 87075; 87081; 87086; 87186; 87205; 96365; 96366; 96367; 96375; 99285; J1100; J1815; J1885; J2001; J2175; J2250; J2270; J2405; J2543; J2704; J3010; J3370; J3475; J3490; J7030; J7060